=== PATIENT | female | born 1985 | race Caucasian/White ===

== ENCOUNTER 2018-05-02 08:40 | Emergency (ER) | payer OTHER ==
[~2018-05-02] VITALS: Ht 157.5 cm; Wt 72.6 kg
[~2018-05-02 08:40] MED LIST: PRENATAL PLUS I1 TAB PO; SYNTHROID50 MCG PO
== END 2018-05-02 12:19 | disposition home or self-care (01) ==
LOC: ER 08:40
DX: R10.2 Pelvic and perineal pain (principal)

== ENCOUNTER 2018-12-21 13:51 | Outpatient (CLI) | payer OTHER ==
[2018-12-21] MEDS ORDERED: PRENATAL TABLE1 EACH (14:17)
[2018-12-21] MEDS ORDERED: SYNTHROID75 MCG PO (14:17)
== END 2018-12-22 11:49 | disposition home or self-care (01) ==
LOC: OBS/DEL 13:51
DX: O26.893 Other specified pregnancy related conditions, third trimester (principal); Z04.3 Encounter for examination and observation following other accident; O99.283 Endocrine, nutritional and metabolic diseases complicating pregnancy, third trimester; E03.8 Other specified hypothyroidism; W18.39XA Other fall on same level, initial encounter; Y93.01 Activity, walking, marching and hiking; Y92.89 Other specified places as the place of occurrence of the external cause; Y99.8 Other external cause status

== ENCOUNTER 2019-01-11 13:35 | Outpatient (CLI) | payer OTHER ==
[~2019-01-11 13:35] MED LIST changes: +PRENATAL TABLE1 EACH; +SYNTHROID75 MCG PO
== END 2019-01-12 12:29 | disposition home or self-care (01) ==
LOC: OBS/DEL 13:35
DX: O26.843 Uterine size-date discrepancy, third trimester (principal); O36.8193 Decreased fetal movements, unspecified trimester, fetus 3; O26.893 Other specified pregnancy related conditions, third trimester; O23.43 Unspecified infection of urinary tract in pregnancy, third trimester

== ENCOUNTER 2019-01-22 21:52 | Inpatient (IN) | payer OTHER ==
[~2019-01-22] VITALS: Ht 157.5 cm; Wt 97.5 kg
== END 2019-01-25 16:09 | disposition home or self-care (01) | DRG 798 ==
LOC: OBS/DEL 21:52 → LDR 01-23 08:17 → OB/GYN 01-23 08:17 → LDR 01-23 09:39 → OB/GYN 01-23 17:56
PROVIDERS: ADMIT Obstetrics & Gynecology
PROC: 10E0XZZ Delivery of Products of Conception, External Approach (ICD-10-PCS; principal; 2019-01-23)
PROC: 0KQM0ZZ Repair Perineum Muscle, Open Approach (ICD-10-PCS; 2019-01-23)
PROC: 3E033VJ Introduction of Other Hormone into Peripheral Vein, Percutaneous Approach (ICD-10-PCS; 2019-01-23)
PROC: 10907ZC Drainage of Amniotic Fluid, Therapeutic from Products of Conception, Via Natural or Artificial Opening (ICD-10-PCS; 2019-01-23)
PROC: 4A1HXCZ Monitoring of Products of Conception, Cardiac Rate, External Approach (ICD-10-PCS; 2019-01-23)
PROC: 0UL70ZZ Occlusion of Bilateral Fallopian Tubes, Open Approach (ICD-10-PCS; 2019-01-24)
DX: O70.1 Second degree perineal laceration during delivery (principal); Z37.0 Single live birth; Z3A.38 38 weeks gestation of pregnancy; Z30.2 Encounter for sterilization; Z22.330 Carrier of Group B streptococcus

== ENCOUNTER 2020-08-22 17:08 | Inpatient (IN) | payer OTHER ==
[~2020-08-22] VITALS: Ht 188 cm; Wt 96.6 kg
[2020-08-27] MEDS ORDERED: PROTONIX40 MG PO (10:44)
[2020-08-27] MEDS ORDERED: AMOX1TAB5 PO (10:44)
== END 2020-08-27 11:41 | disposition home or self-care (01) | DRG 342 ==
LOC: ER 17:08 → SEC-K 21:03 → SURG 21:03
PROVIDERS: ADMIT Surgery; ATTEND Surgery
PROC: 0DTJ0ZZ Resection of Appendix, Open Approach (ICD-10-PCS; principal; 2020-08-23)
PROC: 3E0F7SF Introduction of Other Gas into Respiratory Tract, Via Natural or Artificial Opening (ICD-10-PCS; 2020-08-23)
DX: K35.890 Other acute appendicitis without perforation or gangrene (principal); N39.0 Urinary tract infection, site not specified; E66.8 Other obesity; E03.8 Other specified hypothyroidism; Z20.822 Contact with and (suspected) exposure to COVID-19

== ENCOUNTER 2020-09-16 08:42 | Emergency (ER) | payer OTHER ==
[~2020-09-16] VITALS: Ht 157.5 cm; Wt 93.9 kg
[~2020-09-16 08:42] MED LIST changes: +AMOX1TAB5 PO; +PROTONIX40 MG PO
== END 2020-09-16 15:25 | disposition home or self-care (01) ==
LOC: ER 08:42
DX: R10.13 Epigastric pain (principal); Z20.822 Contact with and (suspected) exposure to COVID-19

== ENCOUNTER 2021-07-08 22:10 | Emergency (ER) | payer OTHER ==
[~2021-07-08] VITALS: Ht 157.5 cm; Wt 102.1 kg
[2021-07-09] MEDS ORDERED: TAMS0.4C PO (07:04)
[2021-07-09] MEDS ORDERED: KETO10TA2 PO (07:04)
[2021-07-09] MEDS ORDERED: CIPRO500 MG PO (07:04)
== END 2021-07-09 07:13 ==
LOC: ER 22:10
DX: N23 Unspecified renal colic (principal); N20.0 Calculus of kidney; R16.0 Hepatomegaly, not elsewhere classified; K42.9 Umbilical hernia without obstruction or gangrene; J84.10 Pulmonary fibrosis, unspecified; Z91.010 Allergy to peanuts

== ENCOUNTER 2022-04-06 16:39 | Emergency (ER) | payer OTHER ==
[~2022-04-06] VITALS: Ht 157.5 cm; Wt 97.1 kg
[~2022-04-06 16:39] MED LIST changes: +CIPRO500 MG PO; +KETO10TA2 PO; +TAMS0.4C PO
== END 2022-04-06 23:36 | disposition home or self-care (01) ==
LOC: ER 16:39
DX: J40 Bronchitis, not specified as acute or chronic (principal); Z91.018 Allergy to other foods; Z20.822 Contact with and (suspected) exposure to COVID-19; J84.10 Pulmonary fibrosis, unspecified